=== PATIENT | male | born 1950 | race Caucasian/White ===

== ENCOUNTER → 2021-02-08 | Outpatient (CLI) | payer MEDICARE ==
--- NOTE | 2021-02-08 09:50 | RAD ---
EXAM: Abdominal aortic sonogram. HISTORY: Aneurysm screening. TECHNIQUE: Sonographic imaging of the abdominal aorta was performed. COMPARISON: None. FINDINGS: The proximal abdominal aorta measures 3.0 cm in caliber. The mid abdominal aorta measures 2 .3 cm in caliber. The distal abdominal aorta measures 2.0 cm in caliber. IMPRESSION: No sonographic evidence of an abdominal aortic aneurysm. Electronically signed by: Penelope Rayo MD (02/08/2021 9:47 AM) [id number]
== END ==
LOC: US 10:28
PROVIDERS: ATTEND Family Medicine
DX: Z00.00 Encounter for general adult medical examination without abnormal findings (principal); Z13.5 Encounter for screening for eye and ear disorders
CPT/HCPCS: 76770